=== PATIENT | male | born 1970 | race Caucasian/White ===

== ENCOUNTER 2022-03-23 12:06 | Emergency (ER) | payer BC ==
[2022-03-23] MEDS: HYDROmorphone 1 MG/ML Syringe IVPUSH ONE ×2 (12:30→14:25)
== END 2022-03-23 14:40 | disposition home or self-care (01) ==
LOC: KA.ED 12:06
DX: S42.021A Displaced fracture of shaft of right clavicle, initial encounter for closed fracture (principal); Z88.0 Allergy status to penicillin; W20.8XXA Other cause of strike by thrown, projected or falling object, initial encounter
CPT/HCPCS: 73000-RT; 96374; 96376; 99283; 99283-25; J1170